=== PATIENT | female | born 1980 | race Hispanic/Latino ===

== ENCOUNTER → 2017-08-31 | Outpatient (CLI) | payer OTHER ==
[~2017-08-31] MED LIST: NORCO 10-325 T1 EACH PO
--- NOTE | 2017-08-31 12:05 | Diagnostic Imaging Report ---
PROCEDURE:ABDOMINAL ULTRASOUND COMPARISON:None. INDICATIONS:ABDOMEN PAIN UNSPECIFIED TECHNIQUE: Ashley scale and color Doppler ultrasound abdomen FINDINGS: Imaged portions of the inferior vena cava and abdominal aorta are normal. Normal pancreatic head and proximal body. The distal body and tail are obscured by bowel gas. Right liver span 15 cm. Normal echogenicity with a smooth parenchymal margin. Portal vein diameter 1.2 cm; normal flow direction. Normal gallbladder. Wall thickness 2 mm. Common bile duct diameter 3 mm. Right kidney: 10.7 x 5.5 x 5.6 cm Left kidney: 11.5 x 5.2 x 4.5 cm. Normal kidneys. Spleen length 8 cm. Within the region of palpable abnormality is a 4.3 x 1.2 cm round, well demarcated avascular solid nodule underlying the subcutaneous fat overlying the abdominal musculature. It is slightly hyperechoic to the overlying fat. There is no change with Valsalva. CONCLUSION: Normal ultrasound abdomen. The small palpable nodule in the right lower quadrant is a superficial mass, likely a lipoma. Dictated by: Terry Mcdonald M.D. on 08/31/2017 at 12:06 Electronically approved by: Terry Mcdonald M.D. on 08/31/2017 at 12:06
== END ==
LOC: US 09:12
PROVIDERS: ATTEND Internal Medicine
DX: R10.10 Upper abdominal pain, unspecified (principal)
CPT/HCPCS: 76700

== ENCOUNTER → 2025-03-08 | Outpatient (REF) | payer OTHER | LOC: RAD 13:07 | PROVIDERS: ATTEND Internal Medicine | DX: S33.5XXA Sprain of ligaments of lumbar spine, initial encounter (principal) | CPT/HCPCS: 72110 ==